=== PATIENT | male | born 1960 | race Caucasian/White ===

== ENCOUNTER 2023-05-24 22:15 | Emergency (ER) | payer OTHER ==
[2023-05-24] MEDS ORDERED: HYDROCODONE/APAP 10/325 TAB ONE (22:56)
[2023-05-24] MEDS ORDERED: LIDOCAINE 1% 20 ML MDV ONE (23:21)
[2023-05-24] MEDS ORDERED: propofoL 200 MG/20 ML VIAL IV ONE (23:59)
[2023-05-25] MEDS ORDERED: propofoL 200 MG/20 ML VIAL IV ONE ×2 (00:26→01:07)
--- NOTE | 2023-05-25 01:17 | ER ---
Nurse's Notes [facility] Name: Charlie Jordan Age: 63 yrs Sex: Male : 1960 Arrival Date: 05/24/2023 Time: 22:15 Bed IW10 Private MD: Diagnosis: Other dislocation of left shoulder joint Presentation: 05/24 22:26 Chief complaint: Patient states: that he was walking and slipped in a mud hole. Pt cm10 reports left arm pain. Pt states that as he was falling he hit his truck. Pt reports having the most pain in his left shoulder. Pt states this happened approximately 1hr ago. Coronavirus screen: Vaccine status: Patient reports being unvaccinated. Client denies travel out of the [place] in the last 14 days. Ebola Screen: Patient denies travel to an Ebola-affected area in the 21 days before illness onset. No symptoms or risks identified at this time. Initial Sepsis Screen: Does the patient meet any 2 criteria? No. Patient's initial sepsis screen is negative. Does the patient have a suspected source of infection? No. Patient's initial sepsis screen is negative. Risk Assessment: Do you want to hurt yourself or someone else? Patient reports no desire to harm self or others. Onset of symptoms was May 24, 2023. 22:26 Method Of Arrival: Ambulatory cm10 22:26 Acuity: MIREYA 3 cm10 Triage Assessment: 22:29 General: Appears in no apparent distress. comfortable, Behavior is calm, cooperative. cm10 Pain: Complains of pain in anterior aspect of left shoulder. Neuro: No deficits noted. Level of Consciousness is awake, alert, obeys commands, Oriented to person, place, time, situation. Respiratory: No deficits noted. Airway is patent Respiratory effort is even, unlabored, Respiratory pattern is regular, symmetrical. Historical: - Allergies: 22:28 No Known Allergies; cm10 - PMHx: 22:28 Diabetes mellitus; Hypertensive disorder; Hypercholesterolemia; Irritable bowel cm10 syndrome; - PSHx: 22:28 left shoulder; Cholecystectomy; neck; back; Tonsillectomy; cm10 - Immunization history:: Adult Immunizations unknown. - Social history:: Smoking status: Patient reports the use of cigarette tobacco products, smokes two packs cigarettes per day. Screenin:56 [facility] ED Fall Risk Assessment (Adult) History of falling in the last 3 months, jj7 including since admission Yes- single mechanical fall (1 pt) Confusion or Disorientation No (0 pts) Intoxicated or Sedated No (0 pts) Impaired Gait No (0 pts) Mobility Assist Device Used No (0 pt) Altered Elimination No (0 pt) Score/Fall Risk Level 0 - 2 = Low Risk Oriented to surroundings, Maintained a safe environment. Abuse screen: Denies threats or abuse. Nutritional screening: No deficits noted. Tuberculosis screening: No symptoms or risk factors identified. Assessment: 22:56 General: Appears in no apparent distress. uncomfortable, Behavior is calm, cooperative, jj7 appropriate for age, Smells of Reports Denies COVERED IN MUD DUE TO FALLING IN A MUD HOLE. Pain: Complains of pain in left arm Pain currently is 9 out of 10 on a pain scale. Alleviated by relaxation, Aggravated by increased activity, Current management. Neuro: No deficits noted. Musculoskeletal: Reports pain in left arm. Injury Description: FALL. 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 jj7 UNSUCCESSFUL. 23:19 Reassessment: DR ZAMBRANO AT BEDSIDE NOW TRYING TO REDUCE SHOULDER DISLOCATION. jj7 UNSUCCESSFUL. 05/25 00:00 Reassessment: SEE CONSCIOUS SEDATION FLOW SHEET FOR VS AND SUMIT SCORES. jj7 00:00 Neuro: Rose Agitation-Sedation Scale (RASS): 0 - Alert and Calm. jj7 00:56 Reassessment: DR FRANK AT BEDSIDE TO HELP REDUCE ARM. WAITING FOR XRAY BEFORE WE jj7 START THE PROCEDURE. 01:26 Reassessment: PT AWAKE AND ALERT. FLUIDS TOLERATED WELL. NO N/V. jj7 Vital Signs: 05/24 22:26 BP 161 / 88; Pulse 67; Resp 18 S; Temp 97.8; Pulse Ox 96% on R/A; Weight 111.13 kg (R); cm10 Height 5 ft. 10 in. (R); Pain 10/10; 23:30 BP 146 / 123; Pulse 61; Resp 20; Pulse Ox 97% ; jj7 05/25 01:35 BP 163 / 70; Pulse 61; Resp 18; Pulse Ox 99% on R/A; Pain 0/10; jj7 05/24 22:26 Body Mass Index 35.15 (111.13 kg, 177.8 cm) cm10 05/24 22:26 Pain Scale: Adult cm10 05/25 01:35 Pain Scale: Adult [facility] ED Course: 05/24 22:21 Patient arrived in ED. gm2 22:22 [facility]ove[facility] Christie [facility]C [facility]. kb 22:22 Viola Zambrano MD is Attending Physician. kb 22:28 Triage completed. cm10 22:30 Arm band placed on Patient placed in an exam room, on a stretcher. cm10 22:32 Samara Little RN is Primary Nurse. jj7 22:56 Patient has correct armband on for positive identification. Bed in low position. Call j light in reach. Side rails up X 1. Adult w/ patient. 23:00 Shoulder Left (2 View) XRAY In Process Unspecified. EDMS 23:31 Inserted saline lock: 20 gauge in right hand, using aseptic technique. jj7 23:55 Consent for conscious sedation explained by staff, explained by physician, signed by blanco patient. 23:55 Provided Education on: Procedure Consent. jj7 23:55 Assist provider with reduction Set up for procedure. Performed by Viola Zambrano MD. jj7 05/25 00:37 Assist provider with reduction Immobilized with sling. jj7 01:10 Assist provider with reduction of left shoulder using manipulation, Performed by Hunter Frank MD Patient tolerated well. 01:20 Shoulder Left (2 View) XRAY In Process Unspecified. EDMS 01:35 IV discontinued, intact, bleeding controlled, No redness/swelling at site. Pressure jj7 dressing applied. Administered Medications: 05/24 22:41 Drug: [place] PO 10 mg-325 mg 1 tabs PO once Route: PO; jj7 23:09 Drug: Lidocaine Infiltration (1 %) 1 vials 20 ml Infiltration once; to bedside {Note: jj7 ADMIN BY DENNY CHRISTIE IN [facility] SHOULDER.} Volume: 20 ml; Route: Infiltration; 23:58 Drug: propofoL (PF) 7 ml IV at bolus bolus Route: IV; Rate: bolus; Site: right hand; jj7 23:59 Follow up: Response: No change in condition jj7 23:59 Drug: propofoL (PF) 3 ml IV at bolus bolus Route: IV; Rate: bolus; Site: right hand; jj7 05/25 00:01 Drug: propofoL (PF) 4 ml IV at bolus bolus Route: IV; Rate: bolus; Site: right hand; jj7 00:08 Drug: propofoL (PF) 4 ml IV at bolus bolus Route: IV; Rate: bolus; Site: right hand; jj7 00:16 Drug: propofoL (PF) 4 ml IV at bolus bolus Route: IV; Rate: bolus; Site: right hand; jj7 00:18 Drug: propofoL (PF) 4 ml IV at bolus bolus Route: IV; Rate: bolus; Site: right hand; jj7 00:20 Drug: propofoL (PF) 6 ml IV at bolus bolus Route: IV; Rate: bolus; Site: right hand; jj7 00:25 Drug: propofoL (PF) 6 ml IV at bolus bolus Route: IV; Rate: bolus; Site: right hand; jj7 01:06 Drug: propofoL (PF) 10 ml IV at bolus once; may repeat as needed Route: IV; Rate: jj7 bolus; Site: right hand; Medication: 05/24 22:56 VIS not applicable for this client. jj7 Outcome: 05/25 01:17 Discharge ordered by MD. jimenez 01:39 Discharged to home ambulatory, with friend, blanco 01:39 Condition: improved 01:39 Discharge instructions given to patient, Instructed on discharge instructions, follow up and referral plans. Demonstrated understanding of instructions, follow-up care, 06:07 Patient left the ED. jj7 Signatures: Dispatcher [employer] EDMO Genoveva Christie, ORDER CLERK-C ORDER CLERK-CkSamara Cruz RN RN jLeslie Keane RN RN cm10 Kary Vuong gm2 Corrections: (The following items were deleted from the chart) 05/24 22:28 22:26 Chief complaint: Patient states: that he was walking and slipped in a mud hole. cm10 Pt reports left arm pain. Pt states that as he was falling he hit his truck. Pt reports having the most pain in his left shoulder. cm10 23:39 23:31 Inserted saline lock: 20 gauge in right hand, using aseptic technique. jj7 jj7
--- NOTE | 2023-05-25 01:18 | EDPHYS ---
Physician Documentation [facility] Name: Charlie Jordan Age: 63 yrs Sex: Male : 1960 Arrival Date: 05/24/2023 Time: 22:15 Bed IW10 Private MD: ED Physician Viola Zambrano HPI: 05/24 23:37 This 63 yrs old Male presents to ER via Ambulatory with complaints of Fall Injury, Arm kb Injury. 23:37 Details of fall: The patient fell from an upright position, while walking. Onset: The kb symptoms/episode began/occurred just prior to arrival. Associated injuries: The patient sustained anterior aspect of left shoulder. Severity of symptoms: At their worst the symptoms were moderate, in the emergency department the symptoms are unchanged. The patient has not experienced similar symptoms in the past. The patient has not recently seen a physician. Pt reports he got stuck in the mud and when he stepped out of truck he slipped, fell backwards and hit left shoulder. Historical: - Allergies: 22:28 No Known Allergies; cm10 - PMHx: 22:28 Diabetes mellitus; Hypertensive disorder; Hypercholesterolemia; Irritable bowel cm10 syndrome; - PSHx: 22:28 left shoulder; Cholecystectomy; neck; back; Tonsillectomy; cm10 - Immunization history:: Adult Immunizations unknown. - Social history:: Smoking status: Patient reports the use of cigarette tobacco products, smokes two packs cigarettes per day. ROS: 23:35 Constitutional: Negative for fever, chills, and weight loss, kb 23:35 MS/extremity: Positive for injury or acute deformity, decreased range of motion, pain, tenderness, of the anterior aspect of left shoulder, 23:35 All other systems are negative, Exam: 23:35 Constitutional: This is a well developed, well nourished patient who is awake, alert, kb and in no acute distress. Head/Face: Normocephalic, atraumatic. ENT: Moist Mucous membranes Cardiovascular: Regular rate Respiratory: Respirations even and unlabored. No increased work of breathing. Talking in full sentences Skin: Warm, dry with normal turgor. Normal color. Neuro: Awake and alert, GCS 15, oriented to person, place, time, and situation. Moves all extremities. Normal gait. 23:35 Musculoskeletal/extremity: Extremities: grossly normal except: noted in the anterior aspect of left shoulder: decreased ROM, pain, tenderness, ROM: limited active range of motion due to pain, Circulation is intact in all extremities. Sensation intact. Vital Signs: 22:26 BP 161 / 88; Pulse 67; Resp 18 S; Temp 97.8; Pulse Ox 96% on R/A; Weight 111.13 kg (R); cm10 Height 5 ft. 10 in. (R); Pain 10/10; 23:30 BP 146 / 123; Pulse 61; Resp 20; Pulse Ox 97% ; jj7 05/25 01:35 BP 163 / 70; Pulse 61; Resp 18; Pulse Ox 99% on R/A; Pain 0/10; jj7 05/24 22:26 Body Mass Index 35.15 (111.13 kg, 177.8 cm) cm10 05/24 22:26 Pain Scale: Adult cm10 05/25 01:35 Pain Scale: Adult jj7 MDM: 05/24 22:22 Patient medically screened. kb 23:30 ED course: Unable to reduce shoulder after lidocaine injection. Dr Zambrano called to kb bedside, unable to reduce. Conscious sedation ordered.. 23:36 Differential diagnosis: fracture, dislocation, . Data reviewed: vital signs, nurses kb notes. Independent interpretation of the following test(s) in the Emergency Department X-Ray: My interpretation is anterior dislocation of left shoulder. 05/25 00:00 ED course: Dr Zambrano and I tried to reduce shoulder under conscious sedation multiple kb times. Unable to reduce shoulder. . 01:19 Management of patient was discussed with the following: Chicken Sexer: Dr Frank, came kb into ER to reduce shoulder. Counseling: I had a detailed discussion with the patient and/or guardian regarding the historical points, exam findings, and any diagnostic results supporting the discharge/admit diagnosis, radiology results, the need for outpatient follow up, a orthopedic surgeon, to return to the emergency department if symptoms worsen or persist or if there are any questions or concerns that arise at home. 05/24 22:28 Order name: Shoulder Left (2 View) XRAY kb 05/25 01:04 Order name: Shoulder Left (2 View) XRAY kb 05/24 23:34 Order name: Conscious Sedation 05/25 01:18 Order name: Sling; Complete Time: 01:20 kb Administered Medications: 05/24 22:41 Drug: [place] PO 10 mg-325 mg 1 tabs PO once Route: PO; jj7 23:09 Drug: Lidocaine Infiltration (1 %) 1 vials 20 ml Infiltration once; to bedside {Note: jj7 ADMIN BY DENNY CHRISTIE IN [facility].} Volume: 20 ml; Route: Infiltration; 23:58 Drug: propofoL (PF) 7 ml IV at bolus bolus Route: IV; Rate: bolus; Site: right hand; jj7 23:59 Follow up: Response: No change in condition 23:59 Drug: propofoL (PF) 3 ml IV at bolus bolus Route: IV; Rate: bolus; Site: right hand; jj7 05/25 00:01 Drug: propofoL (PF) 4 ml IV at bolus bolus Route: IV; Rate: bolus; Site: right hand; j7 00:08 Drug: propofoL (PF) 4 ml IV at bolus bolus Route: IV; Rate: bolus; Site: right hand; jj7 00:16 Drug: propofoL (PF) 4 ml IV at bolus bolus Route: IV; Rate: bolus; Site: right hand; jj7 00:18 Drug: propofoL (PF) 4 ml IV at bolus bolus Route: IV; Rate: bolus; Site: right hand; jj7 00:20 Drug: propofoL (PF) 6 ml IV at bolus bolus Route: IV; Rate: bolus; Site: right hand; jj7 00:25 Drug: propofoL (PF) 6 ml IV at bolus bolus Route: IV; Rate: bolus; Site: right hand; jj7 01:06 Drug: propofoL (PF) 10 ml IV at bolus once; may repeat as needed Route: IV; Rate: jj7 bolus; Site: right hand; Disposition Summary: 05/25/23 01:17 Discharge Ordered Notes: Location: Home kb Condition: Stable kb Diagnosis - Other dislocation of left shoulder joint kb Followup: kb - With: Emergency Department - When: As needed - Reason: Worsening of condition Followup: kb - With: Private Physician - When: 2 - 3 days - Reason: Recheck today's complaints, Continuance of care, Re-evaluation by your physician Discharge Instructions: - Discharge Summary Sheet kb - Shoulder Dislocation, [id number] kb Forms: - Medication Reconciliation Form kb - Thank You Letter kb - Antibiotic Education kb - Prescription Opioid Use kb - Patient Portal Instructions kb - Leadership Thank You Letter kb Signatures: Dispatcher [employer] EDMS Genoveva Christie, UNRULYC ALEXANDER-Samara Rivas, RN RN jj7 Leslie Ojeda RN RN cm10 Corrections: (The following items were deleted from the chart) 00:48 00:06 Shoulder Left 2 View+RAD.[email or web address].BRZ ordered. EDMS EDMS
--- NOTE | 2023-05-25 04:30 | CON ---
Date of Consultation: 05/25/2023 ER CONSULTATION AND PROCEDURE NOTE History: This is my first time seeing this patient to my knowledge. He is a 63-year-old male who st ates he unfortunately slipped and injured his left upper extremity. He was seen and examined for any other injuries by the Emergency Department and was found to have on x-ray of his shoulder, an anteri or dislocated left shoulder. He underwent sedation and closed reduction by Anesthesia Staff. This f elt that it would relocate, but then would re-dislocate and this occurred after more than 1 attempt. After this, I was called and asked to come in to assist. On seeing him, he confirms that he has not had a shoulder dislocation in the past. He has had a history of neck issues as well as history of r otator cuff tear and shoulder issues, however, never a dislocation. We again discussed our plan woul d be for a closed reduction under sedation. He says he understands this and would like to proceed. Procedure: Conscious sedation was achieved by Anesthesia staff. Following this, a traction countert raction technique was used with slight axillary pressure. It was felt to reduce. X-rays taken immed iately after and although this is not a true AP, given the highly displaced nature of an anterior dis location, definitely felt to be located. Also on clinical examination, range of motion appears to be improved. On re-examination, he is neurovascularly intact to his left hand. Shoulder morphology ap pears to be intact and gentle range of motion of the shoulder does not cause pain. At this time, Bekah hsu he can be placed in a sling with followup as an outpatient and all his questions have been ans wered. GARCIA/MC Voice ID: [id number] Report ID: [id number]
[2023-05-25 06:23] VITALS: TEMP 97.8
[2023-05-25 06:43] VITALS: BP 163/70; O2SAT 99
--- NOTE | 2023-05-25 11:19 | RAD REPORT ---
EXAM DESCRIPTION: Shoulder Left 2 View CLINICAL HISTORY: PAIN TECHNIQUE: Single view of the left shoulder COMPARISON: Prior radiograph from May 24, 10: 54 PM FINDINGS: Status post reduction of previously noted glenohumeral dislocation. Alignment is anatomic. No fractures are identified. IMPRESSION: Status post reduction of previously noted glenohumeral dislocation. Electronically signed by: Yo Randolph MD 05/25/2023 1:47 AM CDT Due to temporary technical issues with the PACS/Fluency reporting system, reports are being signed by the in house radiologist without review as a courtesy to ensure prompt reporting. The interpreting r adiologist is fully responsible for the content of the report.
--- NOTE | 2023-05-25 12:08 | RAD REPORT ---
EXAM DESCRIPTION: Shoulder Left 2 View CLINICAL HISTORY: 63 years Male PAIN TECHNIQUE: 2 x-ray views of the left shoulder were performed on 05/24/2023 at 10:54 PM. COMPARISONS: None FINDINGS: There is dislocation of the left glenohumeral joint with likely anterior inferior dislocat ion. No acute fracture is identified. The acromioclavicular joint is intact. No lytic or sclerotic babar ne lesions are seen. There are no significant arthritic or degenerative changes. A biceps anchor scre w projects over the left humeral head. There are partially imaged remote postsurgical changes of the cervical spine. Bone mineralization is normal. No acute soft tissue abnormalities are identified. There is a granuloma in the left upper lobe. IMPRESSION: Findings suggest anterior inferior dislocation of the left glenohumeral joint without ev idence of acute fracture. Electronically signed by: Jenelle Woo DO 05/24/2023 11:19 PM CDT Due to temporary technical issues with the PACS/Fluency reporting system, reports are being signed by the in house radiologist without review as a courtesy to ensure prompt reporting. The interpreting r adiologist is fully responsible for the content of the report.
== END 2023-05-25 06:07 | disposition home or self-care (01) ==
LOC: ER 22:15
PROC: 0RSKXZZ Reposition Left Shoulder Joint, External Approach (ICD-10-PCS; principal; 2023-05-25)
DX: S43.085A Other dislocation of left shoulder joint, initial encounter (principal)
CPT/HCPCS: 73030 ×2; 23655; J2704 ×3; J2001; 96374; 99285